=== PATIENT | male | born 1965 | race Caucasian/White ===

== ENCOUNTER 2018-02-28 09:28 | Emergency (ER) | payer OTHER, SELFPAY ==
[2018-02-28 09:29] VITALS: BP 143/80; PULSE 71; RESP 18; TEMP 36.6; O2SAT 98; BMI 24.0
--- NOTE | 2018-02-28 09:43 | EKG12_ITS ---
Test Reason : ABDOMINAL PAIN Blood Pressure : / mmHG Vent. Rate : 062 BPM Atrial Rate : 062 BPM P-R Int : 126 ms QRS Dur : 076 ms QT Int : 374 ms P-R-T Axes : 065 056 058 degrees QTc Int : 379 ms Normal sinus rhythm Normal ECG Confirmed by KERLINE MAGDALENO, AMOR ([id number]), deputy editor in chief VENU NARAYAN ([id number] on 03/02/2018 3:23:44 PM Referred By: SANG Confirmed By:AMOR CHURCHILL MD
--- NOTE | 2018-02-28 09:43 | CT_ITS ---
STUDY: CT ABDOMEN AND PELVIS WITHOUT CONTRAST REASON FOR EXAM: Male, 52 years old. Right upper quadrant cramps. History of colorectal cancer RADIATION DOSAGE (If Supplied By Facility): CTDIvol = ( 6.58 ) mGy, DLP = ( 343.81 ) mGycm TECHNIQUE: Transaxial images were obtained from the dome of the diaphragm to the symphysis pubis without oral contrast, and without intravenous contrast. Sagittal and coronal images were reconstructed. Individualized dose optimization techniques were used for this CT. COMPARISON: None. FINDINGS: The visualized lung bases are unremarkable. The visualized portions of the heart are within normal limits. Numerous hypodensities within the liver, some are suspicious in appearance. Given history of colon cancer, metastatic disease cannot be excluded. Normal gallbladder and extrahepatic biliary system. Normal spleen. Normal pancreas. Normal bilateral adrenal glands. Normal right kidney. Normal left kidney. Normal visualized stomach. Normal small intestine. Fecal retention within the colon. Postsurgical changes of the rectosigmoid colon. There is non-visualization of the appendix. Normal abdominal aorta. Normal inferior vena cava. Normal retroperitoneum. Normal urinary bladder. There are prostatic calcifications. Prior ventral wall abdominal hernia repair with mesh. There are diffuse degenerative changes of the visualized lumbar spine. CT/Abdomen/Pelvis without Cont IMPRESSION: Numerous echodensities within the liver, some are suspicious in nature. Patient has a history of colorectal cancer. Metastatic lesions cannot be excluded versus 2 simple cysts. Recommend IV contrast enhanced study to further evaluate. Otherwise, retention throughout the colon. Postsurgical changes of the rectosigmoid colon. Electronically Signed: Elías Kirby DO at 10:46 EDT Tel , Service support ,
[2018-02-28 10:10] LABS: Absolute Lymphocyte Count 0.91 X10^3/ul (0.83-4.51); Absolute Neutrophil Count 3.6 X10^3/uL (2.0-7.7); Basophil# 0.01 X10^3/uL; Basophil% 0.2 % (0-1); Eosinophil# 0.07 X10^3/uL; Eosinophils% 1.4 % (0-5); Hematocrit 46.4 % (40-54); Hemoglobin 16.4 g/dl (13.0-16.5); Lymphocyte # 0.91 X10^3/ul (4.0); Lymphocyte % 18.6 % (19-41); Mean Corp Hgb Conc 35.3 g/gl (32-36); Mean Corpuscular Hgb 31.8 pg (27.0-32.0); Mean Corpuscular Volume 90.1 fL (80-94); Mean Platelet Vol. 8.9 fl (6.2-12.0); Monocyte# 0.32 X10^3/uL; Monocyte% 6.5 % (0-10); Neutrophil # 3.59 X10^3/uL (2.7-7.7); Neutrophil % 73.3 % (47-70); POSITIVE COUNT NO; POSITIVE DIFFERENTIAL NO; POSITIVE MORPHOLOGY NO; Platelet Count 168 K/mm3 (150-450); RBC Distribution Width CV 12.6 % (11.6-14.6); RBC Distribution Width SD 41.2 fl (35.1-43.9); Red Blood Count 5.15 M/mm3 (4.6-6.2); White Blood Count 4.9 K/mm3 (4.4-11.0)
[2018-02-28] MEDS: 0.9% Normal Saline 1,000 ML 1000 ML IV (10:12)
[2018-02-28] MEDS: Morphine 4 MG/ML Syringe IV (10:12)
[2018-02-28] MEDS: Ondansetron 4 MG/2 ML Vial IV (10:12)
[2018-02-28 10:29] LABS: AST(SGOT) 11 U/L (15-37); Alanine Aminotransfer ALT/SGPT 24 U/L (16-61); Albumin, Serum 3.7 g/dL (3.2-5.0); Alkaline Phosphatase 71 U/L (45-117); Anion Gap 5 (5-15); BUN 12 mg/dL (7-18); Bilirubin, Direct 0.13 mg/dL (0.00-0.30); Calcium,Total 8.6 mg/dL (8.5-10.1); Chloride 106 mmol/L (98-107); EST Glomerular Filtration Rate 83 mL/min (>60); Est Glom Filt Rate - Afr Amer 100 mL/min (>60); Estimated Creatinine Clearance 88.21 ml/min; Globulin 3.6 g/dL (2.2-4.2); Glucose 102 mg/dL (74-106); Lipase 178 U/L (73-393); Potassium 3.8 mmol/L (3.5-5.1); Protein, Total 7.3 g/dL (6.4-8.2); Sodium Level 141 mmol/L (136-145)
--- NOTE | 2018-02-28 10:57 | ED.DCSUM_ITS ---
- ER Visit Summary Date of Service: 02/28/18 Chief Complaint: Abdominal pain History of Present Illness: The patient is a [address] Jeffers and Dr. Terry. He reports that he has abdominal pain began yesterday afternoon. Is a cramping pain is 9 out of 10 at worst and 6 out of 10 currently. Is worsened by laying on his side is relieved by laying on his back and belching. He has had nausea without vomiting. He had one episode of diarrhea yesterday. No blood in stools or black tarry stools. Is having occasional flatus, but reports this is decreased from usual. He denies any dysuria or frequency. No fever or chills. Patient does have a history of colorectal cancer that he had chemo, radiation, partial colectomy, and colostomy with reversal eventually 4. He reports that at this time he is cancer free. Physical Examination: Vitals: Stable. Afebrile. General: Well-nourished and well-developed. Head: Normocephalic atraumatic. Neck: Supple, no lymphadenopathy. No JVD. Nontender. Cardiovascular: Regular rate and rhythm. No murmurs. Respiratory: No respiratory distress. Clear to auscultation bilaterally. Abdominal: Soft, mild epigastric tenderness to palpation, nondistended, hypoactive bowel sounds. No guarding, rebound, or peritoneal signs. Back: Nontender. Extremities: Nontender, no edema. Skin: Normal color, no rash. Neurologic: Alert and oriented ?3. Cranial nerves II through XII are intact. Normal strength and sensation. Psych: Normal affect. Test Results: CBC is remarkable for segment neutrophils 73 lymphs lites of 19. Chem-7 is normal. LFTs marked for an AST of 11. Lipase normal. EKG is sinus at 62 with no acute changes. Is unchanged from 2007. Troponin is negative. Clinical Impression(s) from Imaging Studies Abdomen/Pelvis CT 02/28/18 09:43 IMPRESSION: Numerous echodensities within the liver, some are suspicious in nature. Patient has a history of colorectal cancer. Metastatic lesions cannot be excluded versus 2 simple cysts. Recommend IV contrast enhanced study to further evaluate. Otherwise, retention throughout the colon. Postsurgical changes of the rectosigmoid colon. Electronically Signed: Elías Kirby DO at 10:46 EDT Tel , Service support , Emergency Department Course and Treatment: Patient was given a dose of morphine and Zofran IV. He is resting comfortably. I had a prolonged discussion with him about the findings in his liver on the CAT scan. He reports that he has had these in the past and there was question of whether or not this was hereditary. Treatment Plan: The patient does not want to do another CAT scan here. I do think that is a reasonable course of action as the radiologist does not have his prior CTs for comparison. However, he is instructed to follow-up Dr. Head regarding these findings and have it compared to a prior CT to see if there is any change or need for treatment. Patient will be discharged with Zofran. He refused pain medications. Follow-up with his primary care physician 1-2 days if not improving. Return to the emergency department for any worsening symptoms. Disposition: To home in improved and stable condition. Impression: 1. Abdominal pain, acute. 2. Multiple echodensities in the liver. 3. History of colorectal cancer. This note was generated with [employer] dictation software. It may contain incorrect words, spelling, and punctuation that were not noted in review of the chart prior to signing ED Disposition - Plan for ED Patient: Chief Complaint: Abd Pain Instructions: ED Abdominal Pain Unkn Cause Prescriptions: Ondansetron [Zofran Odt] 4 mg PO Q8H PRN PRN #10 tablet PRN Reason: Nausea Referrals: Jose Terry MD [Primary Care Provider] - 1-2 Days if not improving Kurt Jeffers DO [STAFF PHYSICIAN] - As soon as possible
[2018-02-28 11:25] VITALS: RESP 18; O2SAT 98
== END 2018-02-28 11:27 | disposition home or self-care (01) ==
LOC: ED 10:06
PROVIDERS: Emergency Provider Emergency Medicine; Family Provider Internal Medicine; PCP Internal Medicine
DX: R10.9 Unspecified abdominal pain (principal); K76.89 Other specified diseases of liver; R11.0 Nausea; R19.7 Diarrhea, unspecified; Z85.038 Personal history of other malignant neoplasm of large intestine; Z85.048 Personal history of other malignant neoplasm of rectum, rectosigmoid junction, and anus; Z90.49 Acquired absence of other specified parts of digestive tract; Z93.3 Colostomy status
CPT/HCPCS: 74176; 80048; 80076; 83690; 84484; 85025; 93005; 96361; 96374; 96375; 99283; J7030; A4216; J2405